=== PATIENT | male | born 1970 | race Caucasian/White ===

== ENCOUNTER 2020-09-01 11:00 | Emergency (ER) | payer SELFPAY ==
[~2020-09-01] VITALS: Ht 182.8 cm; Wt 95.3 kg
[2020-09-01 12:24] LABS: MEAN CELL VOLUME 84.3 fl (80.0-94.0); MEAN CORPUSCULAR HGB 27.1 pg (27.0-31.0); MEAN CORPUSCULAR HGB CONC 32.1 g/dl (33.0-37.0); MEAN PLATELET VOLUME 9.3 fl (9.6-12.3); PLATELET COUNT AUTOMATED 322 10*3/uL (130-400); RED CELL DISTRI WIDTH 15.9 % (0-14.5); WHITE BLOOD COUNT 18.3 10*3/uL (4.8-10.8)
[2020-09-01 12:40] LABS: ALBUMIN 3.2 gm/dl (3.1-4.5); ALKALINE PHOSPHATASE 92 U/L (45-117); BUN 13 mg/dl (7-24); CHLORIDE 106 mmol/L (98-107); CREATININE 1.13 mg/dL (0.70-1.30); POTASSIUM 3.9 mmol/L (3.5-5.1); SGOT/AST 21 IU/L (3-35); SGPT/ALT 27 U/L (12-78); SODIUM 140 mmol/L (136-145); TOTAL PROTEIN 7.1 gm/dL (6.4-8.2)
[2020-09-01 12:46] LABS: TOTAL CELLS COUNTED 100 #CELLS
[2020-09-01 12:47] LABS: PLATELET SUFFICIENCY NORMAL (NORMAL)
[2020-09-01] MEDS ORDERED: LEVOFLOXACIN500 MG PO (13:03)
[2020-09-01] MEDS ORDERED: ALBUTEROL2.5 MG/0.5 INH (14:00)
== END 2020-09-01 13:26 | disposition home or self-care (01) ==
LOC: ED 11:00
PROVIDERS: Emergency Medicine
DX: J18.9 Pneumonia, unspecified organism (principal); Z20.828 Contact with and (suspected) exposure to other viral communicable diseases